=== PATIENT | female | born 1945 | race Two or more races ===

== ENCOUNTER 2018-07-25 09:24 | Emergency (ER) | payer OTHER ==
[~2018-07-25] VITALS: Ht 160 cm; Wt 92.1 kg
[2018-07-25] MEDS ORDERED: ZYNCOF 20-400120 ML (09:54)
[2018-07-25] MEDS ORDERED: SIMVASTATIN10 MG (09:57)
== END 2018-07-25 11:17 | disposition home or self-care (01) ==
LOC: ER 09:24
DX: M62.838 Other muscle spasm (principal); M54.2 Cervicalgia

== ENCOUNTER 2018-09-26 16:45 | Emergency (ER) | payer OTHER ==
[~2018-09-26] VITALS: Ht 160 cm; Wt 92.5 kg
[~2018-09-26 16:45] MED LIST: SIMVASTATIN10 MG; ZYNCOF 20-400120 ML
== END 2018-09-26 20:55 | disposition home or self-care (01) ==
LOC: ER 16:45
DX: K59.09 Other constipation (principal); R10.13 Epigastric pain

== ENCOUNTER 2021-12-14 10:21 | Emergency (ER) | payer OTHER ==
[~2021-12-14] VITALS: Ht 162.6 cm; Wt 93.0 kg
== END 2021-12-14 13:32 | disposition home or self-care (01) ==
LOC: ER 10:21
DX: M75.32 Calcific tendinitis of left shoulder (principal); M25.512 Pain in left shoulder; R42 Dizziness and giddiness

== ENCOUNTER 2024-07-17 21:33 | Emergency (ER) | payer OTHER ==
[~2024-07-17] VITALS: Ht 162.6 cm; Wt 90.7 kg
[2024-07-17] MEDS ORDERED: FAMOtidine 10 MG/ML (4ML VIAL) IV ONE (22:00)
[2024-07-17] MEDS ORDERED: ONDANSETRON HCL 2 MG/ML VIAL IV ONE (22:00)
[2024-07-17] MEDS ORDERED: ONDANSETRON HCL 2 MG/ML VIAL ONE (23:13)
[2024-07-17] MEDS ORDERED: FAMOTIDINE/PF 20 MG/2 ML VIAL ONE (23:14)
[2024-07-18 00:22] LABS: ALBUMIN 3.7 gm/dL (3.4-5.0); BILIRUBIN TOTAL 0.46 mg/dL (0.3-1.2); CALCIUM 9.5 mg/dL (8.5-10.1); CREATININE SERUM 0.8 mg/dL (0.55-1.02); GFR 69.37; GLOBULINA 4.5 G/DL (2.4-3.5); POTASSIUM 4.48 mEq/L (3.5-5.1); TOTAL PROTEIN 8.2 gm/dL (6.4-8.2)
[2024-07-18 00:38] LABS: HEMATOCRIT 45.3 % (36.0-45.00); HEMOGLOBIN 15.1 g/dL (12.0-15.00); MEAN CORPUSCULAR HEMOGLOBIN 28.2 pg (27.00-32.0); MEAN CORPUSCULAR HGB CONC 33.2 g/dl (32.0-36.0); PLATELET COUNT 290 K/uL (150-450); RED BLOOD COUNT 5.33 M/uL (4.00-6.00); RED CELL DISTRIBUTION WIDTH 14.8 % (11.5-14.5)
[2024-07-18] MEDS ORDERED: MECLIZINE HCL 25 MG TABLET PO ONE ×2 (01:39→01:45)
[2024-07-18] MEDS ORDERED: ONDANSETRON ODT8 MG PO (02:45)
[2024-07-18] MEDS ORDERED: MOTION SICKNESS25 M1 PO (02:45)
== END 2024-07-18 03:00 | disposition home or self-care (01) ==
LOC: ER 21:34
PROVIDERS: General Practice
DX: K29.70 Gastritis, unspecified, without bleeding (principal); R42 Dizziness and giddiness; R11.2 Nausea with vomiting, unspecified; R11.10 Vomiting, unspecified; Z20.822 Contact with and (suspected) exposure to COVID-19; I10 Essential (primary) hypertension